=== PATIENT | female | born 1975 | race Caucasian/White ===

== ENCOUNTER 2019-05-31 18:42 | Emergency (ER) | payer SELFPAY ==
[2019-05-31 18:44] VITALS: BP 139/88; PULSE 90; RESP 18; TEMP 36.8; O2SAT 98; BMI 28.9
--- NOTE | 2019-05-31 19:23 | EKG12_ITS ---
Test Reason : SYNCOPE Blood Pressure : / mmHG Vent. Rate : 083 BPM Atrial Rate : 083 BPM P-R Int : 134 ms QRS Dur : 084 ms QT Int : 394 ms P-R-T Axes : 048 010 014 degrees QTc Int : 462 ms Normal sinus rhythm with sinus arrhythmia Nonspecific ST abnormality Abnormal ECG Confirmed by ENRRIQUE FISHER, MO ([id number]), non linear editor HUY BARAJAS ([id number]) on 06/04/2019 3:29:09 PM Referred By: KIERAN Confirmed By:MO OSUNA MD
[2019-05-31 20:27] VITALS: BP 145/90; BP 150/96; BP 156/90; PULSE 88; PULSE 94; PULSE 99
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
--- NOTE | 2019-05-31 20:38 | ED.DCSUM_ITS ---
History of Present Illness Chief Complaint: Syncope Detail of Chief Complaint: Near syncope based on patient's description Informant: Patient Onset: Today Context: Sudden Onset Timing: Intermittent Quality: Lightheaded when she attempted to get out of her car Location: Public area Current Severity: Does not feel normal self Maximum Severity: Moderate Worsened by: Rising from sitting to standing position when she attempted to get out of h Relieved by: Sitting on the ground Associated Symptoms: No other symptoms Narrative: Patient is a 43-year-old woman with no severe past medical history presents with near syncopal episode. She was did not recur when she felt lightheaded. She slumped against a car and lowered herself to the ground. She presently denies lightheadedness but complains she does not feel well. Patient states she had intermittent symptoms of lightheadedness over the past month. She denies black bloody stool. She denies vomiting. She denies cardiac or respiratory symptoms. She denies urologic symptoms. She denies fever, chills or night sweats. Denies weight gain or weight loss. She informed triage that she had dizziness. Her definition of dizziness is lightheadedness. It is not vertiginous. Prior similar symptoms: No Recent Illness/Hospitalization: No - Past Medical History (1) No significant past medical history Status: Acute Past Medical History - Allergies and Home Meds Allergies/Adverse Reactions: Allergies No Known Allergies Allergy (Verified 05/31/19 18:43) Primary Care Physician: Remedios Gomez MD [Primary Care Provider] - Prior records reviewed: Yes Past Medical History: None Surgical History: noncontributory Lives: With Family Smoking Status: Never smoker Alcohol: None Drugs: None Review of Systems General: Denies: Chills, Fever, Sweats Eyes: Denies: Visual changes - bilaterally, Blurred Vision - bilaterally, Diplopia ENT: Denies: Bilateral ear pain, Rhinorrhea, Sore throat Cardiovascular: Denies: Chest pain, Palpitations, Heart racing Respiratory: Denies: Dyspnea, Cough, Dyspnea on exertion Gastrointestinal: Denies: Abdominal pain, Nausea, Vomiting, Diarrhea, Melena, Hematochezia Genitourinary: Denies: Dysuria, Hematuria, Frequency Musculoskeletal: Denies: Myalgias, Arthralgias, Neck pain, Back pain, Swelling, Extremity Pain Skin: Denies: Rash, Wounds Neurological: Reports: Weakness. Denies: Headache, Parasthesia, Numbness, -, - Psych: Denies: Depression Endocrine: Denies: Polyuria, Polydipsia Physical Exam Vital Signs/Narrative: Vital Signs Temp Pulse Pulse Pulse Pulse Resp BP 05/31/19 20:27 88 94 99 05/31/19 18:44 98.3 F 90 18 139/88 H BP BP BP Pulse Ox 05/31/19 20:27 145/90 H 150/96 H 156/90 H 05/31/19 18:44 98 Inital Vital Signs reviewed: Yes General: Well nourished, Well developed, No Acute Distress Head: Normocephalic, Atraumatic Eyes: Perrl, EOMI. Negative for: Pale conjunctiva, Scleral icterus ENT: Moist mucous membranes, No rhinorrhea Neck: Supple, Nontender, No lymphadenopathy, No JVD Cardiovascular: Regular rate, Regular rhythm, No murmurs, Normal S1, Normal S2 Respiratory: No distress, CTA bilaterally, Chest nontender Abdomen: Soft, Nontender, Nondistended, Normal bowel sounds Back: Nontender, Normal Inspection Extremities: Nontender, No edema. Negative for: Calf Tenderness Skin: Normal color, No rash. Negative for: Cyanosis, Diaphoresis, Jaundice, No Trauma Neurological: Alert, Oriented x3, Cranial nerves II-XII grossly intact, Normal Strength, Normal Sensation Psychological: Depressed - Poverty of speech. There is little eye contact. Slow psychomotor skills. Diagnostic/Tx/Re-eval - Medical Decision Making With intermittent orthostatic symptoms will obtain orthostatic vital signs. Orthostatic vital signs were negative. Nurse informed me that she had little eye contact and she started to fall. She states she prevented herself from falling. She raised concern regarding her affect. Since orthostatics were negative will discharge to home with appropriate home- going instructions ED Disposition - Plan for ED Patient: Disposition: Home or Assisted Living Diagnosis: Postural dizziness with near syncope Instructions: NEAR SYNCOPE, Unknown Referrals: Remedios Gomez MD [Primary Care Provider] - As Needed
== END 2019-05-31 21:10 | disposition home or self-care (01) ==
PROVIDERS: Emergency Provider Emergency Medicine; Family Provider Internal Medicine; PCP Internal Medicine
DX: R55 Syncope and collapse (principal); R42 Dizziness and giddiness
CPT/HCPCS: 93005; 99284

== ENCOUNTER 2019-06-02 03:22 | Emergency (ER) | payer SELFPAY ==
[2019-06-02 03:24] VITALS: BP 146/98; PULSE 117; RESP 16; TEMP 36.7; O2SAT 97; BMI 30.2
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
--- NOTE | 2019-06-02 03:32 | EKG12_ITS ---
Test Reason : DYSRHYTHMIA Blood Pressure : / mmHG Vent. Rate : 112 BPM Atrial Rate : 112 BPM P-R Int : 106 ms QRS Dur : 080 ms QT Int : 332 ms P-R-T Axes : 025 006 009 degrees QTc Int : 453 ms Sinus tachycardia Nonspecific ST and T wave abnormality Abnormal ECG Confirmed by TAMAR FISHER, JESSI ([id number]), continuity editor HUY BARAJAS ([id number]) on 06/04/2019 2:58:54 PM Referred By: RHETT Confirmed By:JESSI BOYLE MD
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
[2019-06-02 03:46] LABS: Absolute Lymphocyte Count 2.06 X10^3/uL (0.83-4.51); Basophil# 0.08 X10^3/uL; Basophil% 0.8 % (0-1); Eosinophil# 0.03 X10^3/uL; Eosinophils% 0.3 % (0-5); Hematocrit 42.3 % (37-47); Hemoglobin 13.8 g/dL (12.0-15.0); Lymphocyte # 2.06 X10^3/ul (4.0); Lymphocyte % 20.9 % (19-41); Mean Corp Hgb Conc 32.6 g/dL (32-36); Mean Corpuscular Hgb 29.1 pg (27.0-32.0); Mean Corpuscular Volume 89.2 fL (81-99); Mean Platelet Vol. 11.5 fl (6.2-12.0); Monocyte# 0.62 X10^3/uL; Monocyte% 6.3 % (0-10); NRBC Flagged by Analyzer 0 % (0-5); Neutrophil # 6.97 X10^3/uL (2.7-7.7); Neutrophil % 70.8 % (47-70); Platelet Count 238 K/mm3 (150-450); RBC Distribution Width CV 13.8 % (11.6-14.6); Red Blood Count 4.74 M/mm3 (4.2-5.4); White Blood Count 9.9 K/mm3 (4.4-11.0)
[2019-06-02 04:01] LABS: Internal QC Validated? YES +Cl - CLEAR BKGD; Pregnancy, Serum, hCG Quali. NEGATIVE Negative
[2019-06-02] MEDS: 0.9% Normal Saline 1,000 ML 150 ML IV (04:07)
[2019-06-02 04:16] VITALS: BP 135/96; PULSE 111; RESP 16; O2SAT 99
[2019-06-02 04:17] LABS: Anion Gap 9 (5-15); BUN 22 mg/dL (7-18); BUN/Creat Ratio 25.7 RATIO (10-20); Calcium,Total 9.1 mg/dL (8.5-10.1); Chloride 109 mmol/L (98-107); Creatinine, Serum 0.86 mg/dL (0.55-1.02); EST Glomerular Filtration Rate 76 mL/min (>60); Est Glom Filt Rate - Afr Amer 92 mL/min (>60); Estimated Creatinine Clearance 77.33 ml/min; Glucose 123 mg/dL (74-106); Potassium 3.1 mmol/L (3.5-5.1); Sodium Level 144 mmol/L (136-145)
[2019-06-02 04:28] LABS: Alcohol, Blood (Medical)-Serum < 3.0 mg/dL
[2019-06-02 04:34] LABS: Color, Urine Yellow (Yellow); Glucose, Dipstick Normal (Normal); Leukocyte Esterase-Dipstick 25 /ul (Negative); Nitrite-Dipstick Negative (Negative); Occult Blood-Urine 150 /ul (Negative); Protein-Dipstick 100 mg/dl (Negative); Urine Clarity Sl. Cloudy (Clear); Urine Urobilinogen 1 mg/dl (Normal)
[2019-06-02 04:44] LABS: Urine Bilirubin Dipstick 1 mg/dL (Negative)
[2019-06-02 04:47] LABS: Ketone-Dipstick 150 mg/dl (Negative)
--- NOTE | 2019-06-02 04:47 | ED.RN ---
dr guallpa aware of 150 urine ketone.
[2019-06-02 04:48] LABS: Amorphous Sediment 1+; Bacteria 1+ /hpf (None Seen); Calcium Oxalate Crystals Ur 1+ /hpf (<or=2+); Mucous, Urine 1+ /hpf (<or=2+); Red Blood Cells-Urine 0-5 SEEN /hpf (0-5); Squamous Epithelial Cells - UA 0-5 SEEN /hpf (5-10); White Blood Cells 0-5 SEEN /hpf (0-5)
[2019-06-02 05:14] LABS: Amphetamine Urine VISTA NEGATIVE (<1000 ng/mL); Barbiturate Urine VISTA NEGATIVE (< 200 ng/mL); Benzodiazepine Urine VISTA NEGATIVE (< 200 ng/mL); Cocaine Urine VISTA NEGATIVE (< 300 ng/mL); Ecstacy Urine VISTA NEGATIVE (< 500 ng/mL); Methadone Urine VISTA NEGATIVE (< 300 ng/mL); PCP Urine VISTA NEGATIVE (< 25 ng/mL); THC Urine VISTA NEGATIVE (< 50 ng/mL); Vista UDS pH Range 5
[2019-06-02] MEDS: 0.9% Normal Saline 1,000 ML 999 ML IV (05:30)
[2019-06-02 05:34] VITALS: BP 142/80; PULSE 104; RESP 16; O2SAT 100
[2019-06-02 06:38] VITALS: BP 143/98; PULSE 120; RESP 16; O2SAT 99
== END 2019-06-02 07:26 | disposition home or self-care (01) ==
PROVIDERS: Emergency Provider Emergency Medicine
DX: E87.6 Hypokalemia (principal); E86.0 Dehydration; S40.812A Abrasion of left upper arm, initial encounter; S40.811A Abrasion of right upper arm, initial encounter; W22.11XA Striking against or struck by driver side automobile airbag, initial encounter; V43.52XA Car driver injured in collision with other type car in traffic accident, initial encounter; Y93.9 Activity, unspecified; Y92.9 Unspecified place or not applicable
CPT/HCPCS: 70450; 71045; 80048; 80307; 80320; 81001; 84703; 85025; 93005; 96360; 96361; 99285; J7030; A4216; G0480

== ENCOUNTER 2019-06-02 10:15 | Emergency (ER) | payer SELFPAY ==
[2019-06-02 03:24] VITALS: BMI 30.2
[2019-06-02 10:18] VITALS: BP 138/108; PULSE 125; RESP 17; TEMP 37.2; O2SAT 97; BMI 29.2
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
[2019-06-02 12:21] VITALS: BP 128/84; PULSE 79; RESP 18; O2SAT 99
[2019-06-02 13:31] VITALS: BP 131/98; PULSE 98; RESP 16; O2SAT 99
== END 2019-06-02 13:31 | disposition home or self-care (01) ==
PROVIDERS: Emergency Provider Physician Assistant
DX: R41.0 Disorientation, unspecified (principal); R55 Syncope and collapse; E87.6 Hypokalemia; V89.2XXA Person injured in unspecified motor-vehicle accident, traffic, initial encounter; Y93.9 Activity, unspecified; Y92.9 Unspecified place or not applicable
CPT/HCPCS: 99284

== ENCOUNTER 2021-01-22 12:54 | Emergency (ER) | payer MEDICAID, SELFPAY ==
[2021-01-22 12:55] VITALS: BP 136/92; PULSE 89; RESP 18; TEMP 36.7; O2SAT 99; BMI 33.0
--- NOTE | 2021-01-22 13:14 | EKG12_ITS ---
Test Reason : MEDICAL CLEARANCE Blood Pressure : / mmHG Vent. Rate : 078 BPM Atrial Rate : 078 BPM P-R Int : 140 ms QRS Dur : 088 ms QT Int : 394 ms P-R-T Axes : 043 008 026 degrees QTc Int : 449 ms Normal sinus rhythm Normal ECG Confirmed by NINO FISHER, MADYSON ([id number]), dictionary editor CAROLANN VANCE ([id number]) on 01/27/2021 10:01:01 A M Referred By: DAHIANA Confirmed By:SARAH ONEILL MD
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
[2021-01-22 13:55] LABS: Absolute Lymphocyte Count 1.95 X10^3/uL (0.83-4.51); Absolute Neutrophil Count 6.4 X10^3/uL (2.0-7.7); Basophil# 0.07 X10^3/uL; Basophil% 0.8 % (0-1); Eosinophil# 0.15 X10^3/uL; Eosinophils% 1.7 % (0-5); Hematocrit 39.5 % (37-47); Hemoglobin 12.1 g/dL (12.0-15.0); Lymphocyte # 1.95 X10^3/ul (0.83-4.51); Lymphocyte % 21.6 % (19-41); Mean Corp Hgb Conc 30.6 g/dL (32-36); Mean Corpuscular Hgb 25.7 pg (27.0-32.0); Mean Corpuscular Volume 83.9 fL (81-99); Mean Platelet Vol. 11.5 fl (6.2-12.0); Monocyte# 0.47 X10^3/uL; Monocyte% 5.2 % (0-10); NRBC Flagged by Analyzer 0 % (0-5); Neutrophil # 6.36 X10^3/uL (2.7-7.7); Neutrophil % 70.4 % (47-70); Platelet Count 283 K/mm3 (150-450); RBC Distribution Width CV 16.9 % (11.6-14.6); Red Blood Count 4.71 M/mm3 (4.2-5.4)
[2021-01-22 14:05] LABS: Internal QC Validated? YES +Cl - CLEAR BKGD; Pregnancy, Serum, hCG Quali. NEGATIVE Negative
--- NOTE | 2021-01-22 14:07 | EDS_ITS ---
HPI <Dr. Hill Brady MD - Last Filed: 01/22/21 14:23> HPI - Psych History of Present Illness Chief Complaint: Mental Health Narrative Narrative: Patient arrives from the counseling center via EMS. Apparently she is pink slipped. They had seen her today for panic attacks however when I talked to her she seems to have inability to cope in an outpatient environment, she is not making good eye contact, she is minimally aware of her situation, she is hallucinating at times, she cannot carry on a conversation, apparently she did have a panic attack in the counseling center and she also had an outburst. It is difficult to get information from her however she does deny suicidal ideations. PFSH <Dr. Hill Brady MD - Last Filed: 01/22/21 14:23> [facility] Home Medications NK 01/22/21 [History Last Taken Unknown] Allergy/AdvReac Type Severity Reaction Status Date / Time No Known Allergies Allergy Verified 01/22/21 12:58 Social History Smoking Status: Never smoker ROS <Dr. Hill Brady MD - Last Filed: 01/22/21 14:23> ROS ED ROS Narrative Past medical history: Anxiety and depression Medications: Reviewed Social history: Noncontributory Review of systems:( she does give me a good somatic review of systems but she does not want to talk to me about the situations in her life.) All systems negative except as indicated General: No fever Eyes: No visual changes ENT: No upper airway congestion, normal voice Neck: No neck pain Cardiovascular: No chest pain Respiratory: No shortness of breath or cough Gastrointestinal: No abdominal pain, nausea vomiting or diarrhea Genitourinary: No dysuria Musculoskeletal: Denies myalgias no difficulty with ambulation Skin: No rash Neurological: No memory loss, confusion or any focal weakness Psych: As in HPI EXAM <Dr. Hill Brady MD - Last Filed: 01/22/21 14:23> Physical Exam Narrative Exam Narrative: Physical exam General: Well nourished, Well developed, she does not appear acutely ill Head: Normocephalic, Atraumatic Eyes: Conjunctiva not pale ENT: Moist mucous membranes Neck: Supple, Nontender, No lymphadenopathy Cardiovascular: Regular rate, Regular rhythm Respiratory: No distress, CTA bilaterally Abdomen: Soft, Nontender, Nondistended Back: Nontender, Normal Inspection. Negative for: CVA tenderness Extremities: Nontender, No edema Skin: Normal color, No rash Neurological: Alert, Normal Strength, Normal Sensation Psychological: Very flat affect, she avoids eye contact, she does have some circumferential and tangential thoughts. She is delusional she is denying current hallucinations. Const Vital Signs: 01/22/21 12:55 01/22/21 15:00 01/22/21 16:00 Temperature 98.0 F Temperature Source Oral Pulse Rate 89 79 Respiratory Rate 18 14 17 Blood Pressure 136/92 H Blood Pressure Mean 106 Pulse Ox 99 99 Oxygen Delivery Method Room Air <Dr. Magen Coker MD - Last Filed: 01/22/21 16:38> Physical Exam Const Vital Signs: 01/22/21 12:55 01/22/21 15:00 01/22/21 16:00 Temperature 98.0 F Temperature Source Oral Pulse Rate 89 79 Respiratory Rate 18 14 17 Blood Pressure 136/92 H Blood Pressure Mean 106 Pulse Ox 99 99 Oxygen Delivery Method Room Air MDM <Dr. Hill Brady MD - Last Filed: 01/22/21 14:23> MDM MDM Narrative Medical decision making narrative: Patient will be medically cleared. Otherwise patient will be seen by psychiatry liaison. Lab Data Labs: Laboratory Results - last 24 hr 01/22/21 01/22/21 01/22/21 13:41 13:47 13:47 WBC 9.0 RBC 4.71 Hgb 12.1 Hct 39.5 MCV 83.9 MCH 25.7 L MCHC 30.6 L RDW Std Deviation 52.0 H RDW Coeff of Charissa 16.9 H Plt Count 283 MPV 11.5 Immature Gran % (Auto) 0.300 Neut % (Auto) 70.4 H Lymph % (Auto) 21.6 [place] % (Auto) 5.2 Eos % (Auto) 1.7 Baso % (Auto) 0.8 Absolute Neuts (auto) 6.4 Absolute Lymphs (auto) 1.95 Nucleated RBC % 0 Sodium 141 Potassium 3.8 Chloride 109 H Carbon Dioxide 26.0 Anion Gap 6 BUN 21 H Creatinine 0.73 Estim Creat Clear Calc 85.73 Est GFR (MDRD) Af Amer 111 Est GFR (MDRD) Non-Af 91 BUN/Creatinine Ratio 28.9 H Glucose 89 Calcium 8.9 Serum , Qual Urine Opiates Screen NEGATIVE Urine Methadone Screen NEGATIVE Ur Barbiturates Screen NEGATIVE Ur Phencyclidine Scrn NEGATIVE Ur Amphetamines Screen NEGATIVE U Methamphetamin-MDMA NEGATIVE U Benzodiazepines Scrn NEGATIVE Urine Cocaine Screen NEGATIVE U Cannabinoids Screen NEGATIVE Ur Drug Screen Comment Ethyl Alcohol 01/22/21 01/22/21 13:47 13:47 WBC RBC Hgb Hct MCV MCH MCHC RDW Std Deviation RDW Coeff of Charissa Plt Count MPV Immature Gran % (Auto) Neut % (Auto) Lymph % (Auto) [place] % (Auto) Eos % (Auto) Baso % (Auto) Absolute Neuts (auto) Absolute Lymphs (auto) Nucleated RBC % Sodium Potassium Chloride Carbon Dioxide Anion Gap BUN Creatinine Estim Creat Clear Calc Est GFR (MDRD) Af Amer Est GFR (MDRD) Non-Af BUN/Creatinine Ratio Glucose Calcium Serum , Qual NEGATIVE Urine Opiates Screen Urine Methadone Screen Ur Barbiturates Screen Ur Phencyclidine Scrn Ur Amphetamines Screen U Methamphetamin-MDMA U Benzodiazepines Scrn Urine Cocaine Screen U Cannabinoids Screen Ur Drug Screen Comment Ethyl Alcohol 7.0 <Dr. Magen Coker MD - Last Filed: 01/22/21 16:38> MDM MDM Narrative Medical decision making narrative: The patient was accepted at [facility] for psychiatry. She will be transferred for further care of her decompensated mental illness. Lab Data Labs: Laboratory Results - last 24 hr 01/22/21 01/22/21 01/22/21 13:41 13:47 13:47 WBC 9.0 RBC 4.71 Hgb 12.1 Hct 39.5 MCV 83.9 MCH 25.7 L MCHC 30.6 L RDW Std Deviation 52.0 H RDW Coeff of Charissa 16.9 H Plt Count 283 MPV 11.5 Immature Gran % (Auto) 0.300 Neut % (Auto) 70.4 H Lymph % (Auto) 21.6 [place] % (Auto) 5.2 Eos % (Auto) 1.7 Baso % (Auto) 0.8 Absolute Neuts (auto) 6.4 Absolute Lymphs (auto) 1.95 Nucleated RBC % 0 Sodium 141 Potassium 3.8 Chloride 109 H Carbon Dioxide 26.0 Anion Gap 6 BUN 21 H Creatinine 0.73 Estim Creat Clear Calc 85.73 Est GFR (MDRD) Af Amer 111 Est GFR (MDRD) Non-Af 91 BUN/Creatinine Ratio 28.9 H Glucose 89 Calcium 8.9 Serum , Qual Urine Opiates Screen NEGATIVE Urine Methadone Screen NEGATIVE Ur Barbiturates Screen NEGATIVE Ur Phencyclidine Scrn NEGATIVE Ur Amphetamines Screen NEGATIVE U Methamphetamin-MDMA NEGATIVE U Benzodiazepines Scrn NEGATIVE Urine Cocaine Screen NEGATIVE U Cannabinoids Screen NEGATIVE Ur Drug Screen Comment Ethyl Alcohol 01/22/21 01/22/21 13:47 13:47 WBC RBC Hgb Hct MCV MCH MCHC RDW Std Deviation RDW Coeff of Charissa Plt Count MPV Immature Gran % (Auto) Neut % (Auto) Lymph % (Auto) [place] % (Auto) Eos % (Auto) Baso % (Auto) Absolute Neuts (auto) Absolute Lymphs (auto) Nucleated RBC % Sodium Potassium Chloride Carbon Dioxide Anion Gap BUN Creatinine Estim Creat Clear Calc Est GFR (MDRD) Af Amer Est GFR (MDRD) Non-Af BUN/Creatinine Ratio Glucose Calcium Serum , Qual NEGATIVE Urine Opiates Screen Urine Methadone Screen Ur Barbiturates Screen Ur Phencyclidine Scrn Ur Amphetamines Screen U Methamphetamin-MDMA U Benzodiazepines Scrn Urine Cocaine Screen U Cannabinoids Screen Ur Drug Screen Comment Ethyl Alcohol 7.0 Discharge Plan Triage Chief Complaint: Mental Health ED Provider: Magen Coker Dx/Rx/DC Orders Clinical Impression: Acute psychosis Prescriptions: No Action NK RF: 0 Primary Care Provider: Matthias Paredes Referrals: Matthias Paredes MD [Primary Care Provider] - Disposition Disposition: Psychiatric Hospital or Unit
[2021-01-22 14:08] LABS: Amphetamine Urine VISTA NEGATIVE (<1000 ng/mL); Barbiturate Urine VISTA NEGATIVE (< 200 ng/mL); Benzodiazepine Urine VISTA NEGATIVE (< 200 ng/mL); Cocaine Urine VISTA NEGATIVE (< 300 ng/mL); Ecstacy Urine VISTA NEGATIVE (< 500 ng/mL); Methadone Urine VISTA NEGATIVE (< 300 ng/mL); PCP Urine VISTA NEGATIVE (< 25 ng/mL); THC Urine VISTA NEGATIVE (< 50 ng/mL); Vista UDS pH Range 5
[2021-01-22 14:10] LABS: Anion Gap 6 (5-15); BUN 21 mg/dL (7-18); BUN/Creat Ratio 28.9 RATIO (10-20); Calcium,Total 8.9 mg/dL (8.5-10.1); Chloride 109 mmol/L (98-107); Creatinine, Serum 0.73 mg/dL (0.55-1.02); EST Glomerular Filtration Rate 91 mL/min (>60); Est Glom Filt Rate - Afr Amer 111 mL/min (>60); Estimated Creatinine Clearance 85.73 ml/min; Glucose 89 mg/dL (74-106); Potassium 3.8 mmol/L (3.5-5.1); Sodium Level 141 mmol/L (136-145)
--- NOTE | 2021-01-22 14:44 | CM.ED ---
SOCIAL WORK Assisting Crisis, referral called and faxed to [facility] at this time. Norberto Frederick, RAILROAD EMERGENCY SERVICES MANAGER, FLIGHT DYNAMICIST
[2021-01-22 15:00] VITALS: PULSE 79; RESP 14; O2SAT 99
--- NOTE | 2021-01-22 15:27 | CM.ED ---
SOCIAL WORK Call to [facility] to check on status of referral. Worker reports under review at this time. Norberto Frederick, SHOW CARD WRITER, CLIENT SUPPORT REPRESENTATIVE
[2021-01-22 16:00] VITALS: RESP 17
--- NOTE | 2021-01-22 16:14 | CM.ED ---
SOCIAL WORK Call from [facility]. Patient accepted by Dr. Sloan to the Intensive Treatment Unit. Nurse to call report to . [place] to set up transport. Patient, staff and Crisis updated. Plan: [facility] Norberto Frederick, COAL EQUIPMENT OPERATOR, CENTRAL LAB TECHNICIAN
--- NOTE | 2021-01-22 16:22 | NURSING ---
CALLED [facility]. ETA IS 2 HRS. TALKED TO TRINI
[2021-01-22 17:00] VITALS: RESP 16
[2021-01-22 18:00] VITALS: BP 129/81; PULSE 78; RESP 16; O2SAT 99
--- NOTE | 2021-01-22 18:50 | ED.RN ---
[facility] ETA 5 MIN
[2021-01-22 19:00] VITALS: RESP 15
== END 2021-01-22 19:11 ==
PROVIDERS: Emergency Medicine; Emergency Provider Emergency Medicine; PCP Family Medicine
DX: F23 Brief psychotic disorder (principal)
CPT/HCPCS: 36415; 80048; 80307; 82077; 84703; 85025; 87426; 93005; 99285